=== PATIENT | female | born 1965 | race Caucasian/White ===

== ENCOUNTER 2017-07-13 21:58 | Emergency (ER) | payer OTHER ==
[~2017-07-13] VITALS: Ht 170.2 cm; Wt 158.8 kg
[2017-07-13 22:00] VITALS: BP 116/75
--- NOTE | 2017-07-13 22:02 | NUR ---
CHRISTIAN HERNANDEZ. TAKEN TO BED 1
--- NOTE | 2017-07-13 22:04 | NUR ---
52/F BIBA S/P FALL AT HOME. PT REPORTS RT KNEE BUCKLED AT SHE FELL ON THE FLOOR, DENIES LOC, REPORTS 10/10 SEVERE PAIN TO RT KNEE, +PMSC TO RT LEG, NO DEFORMITIES NOTED AT THIS TIME.DENIES ANY OTHER INJURIES AT THIS TIME. DENIES SOB/CP, N/V, VISUAL DISTURBANCES PMH: CHRONIC PAIN, HTN, DM, HLD. LAST NORCO TAKEN AT 1800
--- NOTE | 2017-07-13 22:04 | NUR ---
Dr. Kim evaluating patient at bedside.
[2017-07-13] MEDS ORDERED: HYDROcodone/APAP 5/325 MG 1 TAB TAB PO ONE (22:10)
[2017-07-13] MEDS ORDERED: SERT100T PO (22:11)
[2017-07-13] MEDS ORDERED: ATRMDI INH (22:11)
[2017-07-13] MEDS ORDERED: SYN.05 PO (22:11)
[2017-07-13] MEDS ORDERED: GABA300C PO (22:11)
[2017-07-13] MEDS ORDERED: CYCL10TA13 PO (22:11)
[2017-07-13] MEDS ORDERED: METF1000 PO (22:11)
[2017-07-13] MEDS ORDERED: ALBU0.0912 IH (22:11)
[2017-07-13] MEDS ORDERED: DEXT120S59 PO (22:11)
[2017-07-13] MEDS ORDERED: DOCU-463 PO (22:11)
[2017-07-13] MEDS ORDERED: ZOLP10TA1 PO (22:11)
[2017-07-13] MEDS ORDERED: ATI.5 PO (22:11)
[2017-07-13] MEDS ORDERED: IBUP-1842 PO (22:11)
[2017-07-13] MEDS ORDERED: LANTUS SUBQ (22:11)
[2017-07-13] MEDS ORDERED: ACET-787 PO (22:11)
[2017-07-13] MEDS ORDERED: VITD1000 PO (22:11)
--- NOTE | 2017-07-13 22:15 | NUR ---
XRAY AT BEDSIDE
--- NOTE | 2017-07-13 23:00 | NUR ---
Patient discharged with v/s stable. Written and verbal after care instructions given and explained. Patient verbalized understanding. Wheel Chair Assisted with to car. All questions addressed prior to discharge. Advised to follow up with PMD.
[2017-07-13 23:40] VITALS: BP 118/52
== END 2017-07-13 23:00 | disposition home or self-care (01) ==
LOC: MED 21:58
DX: S83.8X1A Sprain of other specified parts of right knee, initial encounter (principal); J44.9 Chronic obstructive pulmonary disease, unspecified; I10 Essential (primary) hypertension; Z85.43 Personal history of malignant neoplasm of ovary; Z79.899 Other long term (current) drug therapy; Z88.0 Allergy status to penicillin; Z88.8 Allergy status to other drugs, medicaments and biological substances; W19.XXXA Unspecified fall, initial encounter; Y93.9 Activity, unspecified; Y92.89 Other specified places as the place of occurrence of the external cause; Y99.8 Other external cause status
CPT/HCPCS: 29505; 73562; 99284